=== PATIENT | male | born 1925 | race Caucasian/White ===

== ENCOUNTER 2016-07-07 16:12 | Emergency (ER) | payer MEDICARE, OTHER ==
[~2016-07-07] VITALS: Ht 176.5 cm; Wt 118.2 kg
[~2016-07-07 16:12] MED LIST: ALLO300T2 PO; ALPH600C3 PO; AMLO5TAB2 PO; ASPI-973 PO; ATOR10TA66 PO; DOCU-41 PO; FURO40TA4 PO; GABA-502 PO; GABA600T2 PO; INSU100V7 SUBQ; LISI40TA PO; NEPHVIT PO; PENI500T PO; POTA20TA16 PO; RANI150C4 PO; TAMS0.4C29 PO
[2016-07-07 16:14] VITALS: BP 186/67; PULSE 78; RESP 24; O2SAT 96
--- NOTE | 2016-07-07 16:22 | ED.REPORT ---
HPI-General Illness Date of Service Jul 07, 2016 ED Provider: Dr. Burns 89 y/o male with a hx of CHF, HTN, DM and sleep apnea presents to the ED complaining of SOB and nonproductive cough. Pt reports he started noticing that he was "going to catch a cold 3 weeks ago" He has experienced sneezing, wheezing and cough, which causes ABD pain. He has an appointment with his PCP on Sunday but felt his symptoms had become too severe to wait. Pt denies lower extremity edema. He does not use inhalers at home. He denies any history of bronchitis, COPD or asthma. He has not had any weight gain. He has not had any chest pain. He has not had any calf tenderness, recent surgery, recent immobilization or history of DVTs or pulmonary embolism. Nursing Notes Stated Complaint: SOB Chief Complaint: Respiratory Distress Nursing Notes Reviewed: Yes Allergies: Coded Allergies: No Known Allergies (Verified Allergy, Unknown, 07/07/16) Scheduled Allopurinol (Allopurinol) 300 Mg Tablet 300 MG PO DAILY Alpha Lipoic Acid (Alpha Lipoic Acid) 600 Mg Capsule 600 MG PO DAILY Amlodipine (Amlodipine) 5 Mg Tablet 10 MG PO DAILY Aspirin (Aspirin) 81 Mg Tablet 81 MG PO DAILY Atorvastatin Calcium (Atorvastatin Calcium) 10 Mg Tablet 10 MG PO HS Azithromycin (Zithromax (Z-Clem)) 250 Mg Tablet 250 MG PO DIRECTED Take two tablets by mouth on day 1, then take one tablet daily on days 2 through 5. Furosemide (Furosemide) 40 Mg Tablet 80 MG PO BID Gabapentin (Gabapentin) 300 Mg Capsule 300 MG PO DAILY Gabapentin (Gabapentin) 600 Mg Tablet 600 MG PO QPM Insulin Glargine (Lantus U100 Insulin Vial) 100 Unit/Ml Vial 120 UNIT SUBQ QAM Lisinopril (Lisinopril) 40 Mg Tablet 40 MG PO DAILY Penicillin V Potassium (Penicillin V Potassium) 500 Mg Tablet 500 MG PO BID Potassium Chloride (Potassium Chloride) 20 Meq Tab.er.prt 20 MEQ PO BID TAKE WITH FOOD Ranitidine (Ranitidine) 150 Mg Capsule 150 MG PO BID Tamsulosin ER (Tamsulosin ER) 0.4 Mg Cap.er.24h 0.4 MG PO DAILY Vitamin B Complex/Vit C (Daly-Armida Tablet) 1 Tab Tab 1 TAB PO DAILY Scheduled PRN Benzonatate (Tessalon Perle) 100 Mg Capsule 100 MG PO TID PRN PRN For Cough Docusate Sodium (Colace) 100 Mg Capsule 100 MG PO BID PRN PRN For Constipation General Time Seen by MD: 16:21 Chief Complaint Breathing problem (SOB) Hx Obtained From: Patient Arrived By: Walk-in Sudden in Onset?: Yes Onset Occurred: More than a week ago... Symptom Duration: Since onset Location: : Abdomen Quality: Painful Severity: Current: Mild Severity: Maximum: Mild Recent Healthcare: No recent doctor visit, No recent hospitalization Similar Sx Previous: No Past Medical History Past Medical History Notes: PCP: Dr. Jimmie Petersen Past Medical History 1. Intractable right low back pain/sciatica. 2. Diabetes with peripheral neuropathy, uncontrolled. 3. Hypertension. 4. Hyperlipidemia. 5. Stage 3 chronic kidney disease. 6. 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 7. Morbid obesity. 8. Gout. 9. Hard of hearing. 10. Benign prostatic hyperplasia. 11. Obstructive sleep apnea. 12. History of bradycardia with prior type 2 Wenckebach, improved when beta blockers were discontinued. 13. History of mild thrombocytopenia. 14. Diabetic neuropathy, treated with gabapentin. 15. DO NOT RESUSCITATE/DO NOT INTUBATE status. Reports: Diabetes mellitus, Hypertension Past Surgical History Distant hx of back surgery Reports: Cataract surgery, Cholecystectomy, Prostatectomy Smoking History Never Smoker Social History Alcohol Use: Denies alcohol use Drug Use: Denies drug use Ambulatory Status Cane Review of Systems Full Review of Systems Constitutional: Reports: Malaise Respiratory: Reports: Non-productive cough, Shortness of breath, Wheezing GI: Reports: Abdominal pain (secondary to coughin) Musculoskeletal: Denies: Extremity swelling Allergy / Immune: Reports: Sneezing Complete sys rev & neg: except as marked. Physical Exam Vital Signs Vital Signs Date Time Temp Pulse Resp B/P Pulse Ox O2 Delivery O2 Flow Rate FiO2 07/07/16 18:40 67 20 122/52 92 Room Air 07/07/16 18:12 75 16 96 Room Air 07/07/16 16:14 36.1 78 24 186/67 96 Room Air Initial VS: Reviewed, Vital signs normal Head / Eyes: Atraumatic, Normocephalic, PERRL ENT: Mucous membranes moist, Conjunctiva normal, No scleral icterus Neck: Supple, Full range of motion Abdomen / GI: Soft, Non-tender, No guarding, No rebound, No distention Skin: Warm, Dry, No cyanosis Neurologic: Alert, Oriented, Nonfocal Psychiatric: Mood/affect normal, Behavior normal, Normal thought content General/Constitutional: Awake, Alert, Cooperative Respiratory / Chest: Atraumatic Coarse breath sounds bilaterally. Expiratory wheezing in both lungs. No crackles Cardiovascular: Heart rate NL, Regular rhythm, Heart sounds NL, No gallop, No murmurs, No rubs Good radial pulse. Back: Atraumatic, Full range of motion Upper Extremities Upper Extremity / MS: Atraumatic, Full range of motion Lower Extremity / Pelvis / MS: Atraumatic, Full range of motion Interpretation & Diagnostics Lab Results Interpretation Result Diagram: 07/07/16 1705 07/07/16 1705 Test 07/07/16 17:05 07/07/16 18:40 White Blood Count 9.7th/mm3 (3.8-10.1) Red Blood Count 3.66mil/mm3 (4.40-5.80) Hemoglobin 10.7g/dL (13.8-17.2) Hematocrit 34.5% (41.0-50.0) Mean Corpuscular Volume 94.3fL (81-100) Mean Corpuscular Hemoglobin 29.2pg (27.0-35.0) Mean Corpuscular Hemoglobin Concent 31.0% (32.0-37.0) Red Cell Distribution Width 16.2% (12.3-15.4) Platelet Count 198bil/L (150-400) Neutrophils (%) (Auto) 74.2% (40-74) Lymphocytes (%) (Auto) 11.6% (14-46) Monocytes (%) (Auto) 7.9% (4-12) Eosinophils (%) (Auto) 5.2% (0-5) Basophils (%) (Auto) 0.4% (0-3) Sodium Level 137mEq/L (134-144) Potassium Level 4.5mEq/L (3.5-5.2) Chloride Level 97mEq/L (97-108) Carbon Dioxide Level 23mmol/L (18-29) Blood Urea Nitrogen 45mg/dL (8-27) Creatinine 1.81mg/dL (0.76-1.27) Estimat Glomerular Filtration Rate 38mL/min (>59) Glucose Level 227mg/dL (60-99) Calcium Level 8.8mg/dL (8.5-10.1) Total Bilirubin 0.2mg/dL (0.0-1.2) Aspartate Amino Transf (AST/SGOT) 17U/L (0-50) Alanine Aminotransferase (ALT/SGPT) 17U/L (0-44) Alkaline Phosphatase 139U/L (25-160) Troponin T 0.059ug/L (0.0-0.011) Pro-B-Type Natriuretic Peptide 157.2pg/mL (0-486) Total Protein 8.1g/dL (6.4-8.4) Albumin 3.6g/dL (3.4-5.0) Hold [place] Top Tube Received (Received) ECG Interpretation ECG Interpretation: Sinus rhythm. Rate 66 Normal axis Normal interval No ST segment change T wave inversion in lead AVL No changes compared to prior. Time: 17:07 Interpreted by: ED physician X-Ray Chest Interpretation Chest Xray Interpretation: IMPRESSION: No acute cardiopulmonary disease. Dictated by: Morteza Kc RRA Interpreted: Monica Teran MD on 07/07/2016 at 17:05 Transcribed by: NINI on 07/07/2016 at 17:05 View: Portable, 1 view Interpretation / Wet Read by: Interpret - Radiologist Re-Eval/Medical Decision Med Decision/Clinical Course 89 y/o male with a hx of CHF, HTN, DM and sleep apnea presents to the ED complaining of SOB and nonproductive cough. Pt reports he started noticing that he was "going to catch a cold 3 weeks ago" He has experienced sneezing, wheezing and cough, which causes ABD pain. He has an appointment with his PCP on Sunday but felt his symptoms had become too severe to wait. Pt denies lower extremity edema. He does not use inhalers at home. He denies any history of bronchitis, COPD or asthma. He has not had any weight gain. He has not had any chest pain. He has not had any calf tenderness, recent surgery, recent immobilization or history of DVTs or pulmonary embolism. Here in the emergency department the patient is somewhat tachycardic though otherwise afebrile and hemodynamically stable. He is in no apparent distress. Examination of his lungs reveals coarse breath sounds bilaterally with scattered expiratory wheezing. He was treated with 1 DuoNeb and reported mild symptom improvement. He was ambulated thereafter on pulse oximetry and maintained oxygen saturation in the high 90s on room air. LABS: CBC: no leukocytosis, hct 34.5, BUN 45, creatinine 1.8 (this is not significantly elevated from his baseline kidney function, troponin 0.059 (not significantly elevated from baseline), BNP is not significantly elevated CXR: Obtained, reviewed and interpreted by myself shows no evidence of infiltrates, effusions or pneumothorax. Cardiac and mediastinal silhouette normal. No bony or soft tissue abnormalities. The patient's presentation today is not suggestive of acute pulmonary edema or CHF exacerbation. While he does have underlying congestive heart failure he has not experienced any weight gain and his chest x-ray demonstrates no pulmonary edema. Presentation not suggestive of acute coronary syndrome. Troponin is elevated however EKG demonstrates no acute ischemic changes. Troponin is elevated at baseline and is down from prior. This is somewhat reassuring and I believe that his troponin is elevated in the setting of his chronic kidney disease. Patient is able to ambulate and maintained good oxygen saturation on room air. Presentation most consistent with bronchitis. Duration of symptoms I will treat with Tessalon for cough and a course of azithromycin. My initial plan was to admit this patient for serial troponin however he declines admission and he has an appointment with his primary care doctor on Sunday. He understands the risks of declining admission and I feel that his choice is appropriate. Prior to discharge follow-up and return precautions were reviewed in detail with the patient who verbalized understanding and agreement with the plan. The patient was discharged in stable condition. Source of Hx: Old records Consultation : Consulted With: Hospitalist Candlemaker: Will see patient, Agrees with eval, Agrees with plan, Accepts admit Counseled Regarding: Diagnosis, Lab results, Need for admission Discharge & Departure Primary Impression: Elevated troponin Additional Impressions: Shortness of breath Bronchitis Disposition: ADMITTED TO HOSPITAL Discharge Condition All VS Reviewed: Yes Condition: Stable Referrals: Jimmie Petersen MD (PCP) Scribe Attestation Portions of this note were transcribed by Donna Guerrero . I, personally performed the history, physical exam and medical decision-making;I reviewed and confirmed the accuracy of the information in the transcribed note. Signed by Donna Elias and Isabell Guerrero, Scribmiguel. 07/07/16 1830. copies to: Jimmie Petersen MD, Beck O MD Jul 07, 2016 16:22 Donna Elias Jul 07, 2016 17:17 Isabell Guerrero Jul 07, 2016 17:55
--- NOTE | 2016-07-07 17:06 | DRSVH ---
PROCEDURE: X-RAY CHEST ONE VIEW, PORTABLE ([id number]) INDICATIONS: shortness of breath , cough TECHNIQUE: One view of the chest was acquired. COMPARISON: [facility], CR, XR CHEST 1VW (PORTABLE), 12/31/2015, 9:34. [facility], CR, XR CHEST 1VW (PORTABLE), 05/25/2015, 11:41. [facility], CR, XR CHEST 1VW (POR TABLE), 03/01/2015, 19:13. FINDINGS: Surgical changes and devices: None. Lungs and pleura: No pleural effusions or pneumothorax. Lungs are clear. Mediastinum: Mediastinal contours appear normal. Heart size is enlarged. Bones and chest wall: No suspicious bony lesions. Overlying soft tissues appear unremarkable. IMPRESSION: No acute cardiopulmonary disease. Dictated by: Morteza Kc [facility] Interpreted: Monica Teran MD on 07/07/2016 at 17:05 Transcribed by: NINI on 07/07/2016 at 17:05 Approved by: Monica Teran MD, PhD on 07/08/2016 at 9:24
[2016-07-07 17:14] LABS: BASOPHILS % (AUTO) 0.4 % (0-3); EOSINOPHILS % (AUTO) 5.2 % (0-5); MONOCYTES % (AUTO) 7.9 % (4-12); Mean Corpuscular Hemoglobin 29.2 pg (27.0-35.0); Mean Corpuscular Volume 94.3 fL (81-100); NEUTROPHILS % (AUTO) 74.2 % (40-74); Platelet Count 198 bil/L (150-400)
[2016-07-07] MEDS ORDERED: Albuterol-Ipratropium 3 mL Inhalation Solution NEB ONE (17:45)
[2016-07-07 17:53] LABS: TROPONIN T 0.059 ug/L (0.0-0.011)
[2016-07-07] MEDS ORDERED: Ondansetron 2 mg/mL 2 mL Inj IVPUSH PRN (18:05)
[2016-07-07] MEDS ORDERED: Alum-Mag Hydrox-Simeth 30 mL Suspension PO PRN (18:05)
[2016-07-07 18:12] VITALS: PULSE 75; RESP 16; O2SAT 96
[2016-07-07 18:40] VITALS: BP 122/52; PULSE 67; RESP 20; O2SAT 92
[2016-07-07] MEDS ORDERED: AZIT250T4 PO (18:44)
[2016-07-07] MEDS ORDERED: BENZ-12 PO (18:44)
[2016-07-07 19:24] LABS: APPEARANCE,URINE CLEAR (CLEAR,HAZY); COLOR,URINE YELLOW (YELLOW)
[2016-07-07 19:25] LABS: OCCULT BLOOD,URINE NEGATIVE (NEGATIVE); UROBILINOGEN,URINE NORMAL (NORMAL)
[2016-07-07 19:41] VITALS: BP 135/65; PULSE 69; RESP 20; O2SAT 96
== END 2016-07-07 19:35 | disposition home or self-care (01) ==
LOC: SED 16:12
DX: J40 Bronchitis, not specified as acute or chronic (principal); R77.8 Other specified abnormalities of plasma proteins; I13.0 Hypertensive heart and chronic kidney disease with heart failure and stage 1 through stage 4 chronic kidney disease, or unspecified chronic kidney disease; I50.9 Heart failure, unspecified; E11.22 Type 2 diabetes mellitus with diabetic chronic kidney disease; N18.3 Chronic kidney disease, stage 3 (moderate); E11.40 Type 2 diabetes mellitus with diabetic neuropathy, unspecified; E78.5 Hyperlipidemia, unspecified; Z79.4 Long term (current) use of insulin; Z79.82 Long term (current) use of aspirin
CPT/HCPCS: 36415; 71010; 80053; 81000; 83880; 84484; 85025; 93005; 94664; 99285; J7620

== ENCOUNTER 2016-12-03 03:56 | Inpatient (IN) | payer MEDICARE, OTHER ==
[2016-12-03] VITALS (9 sets, daily range): BP systolic 141–165; BP diastolic 56–77; PULSE 66–76; RESP 16–22; O2SAT 92–97
[~2016-12-03] VITALS: Ht 177.8 cm; Wt 127.3 kg
[~2016-12-03 03:56] MED LIST changes: +AZIT250T4 PO; +BENZ-12 PO
--- NOTE | 2016-12-03 04:06 | ED.REPORT ---
HPI-Trauma Minor / Fall Date of Service Dec 03, 2016 ED Provider: Denis Vargas DO Patient is an 89 year old male with a history of CHF, hypertension and diabetes who presents to the ED via EMS complaining of generalized weakness onset 0300 this morning. He denies increased shortness of breath (and states he is "always short of breath"), any pain or hitting his head when he fell. The patient reports that he went to go to the bathroom and suddenly was on his knees and unable to get up. Upon arrival to the ED, the patient states that he continues to feel weak and has no other complaints. Nursing Notes Stated Complaint: GROUND LEVEL FALL Chief Complaint: Multiple Trauma/Fall Nursing Notes Reviewed: Yes Allergies: Coded Allergies: No Known Allergies (Verified Allergy, Unknown, 12/03/16) Scheduled Allopurinol (Allopurinol) 300 Mg Tablet 300 MG PO DAILY Alpha Lipoic Acid (Alpha Lipoic Acid) 600 Mg Capsule 600 MG PO DAILY Amlodipine (Amlodipine) 10 Mg Tablet 10 MG PO DAILY Aspirin/Caffeine (Anacin 500-32 mg Tablet) 1 Each Tablet 1 TABLET PO DAILY Atorvastatin Calcium (Atorvastatin Calcium) 10 Mg Tablet 10 MG PO MORNING Furosemide (Furosemide) 40 Mg Tablet 120 MG PO BID Gabapentin (Gabapentin) 300 Mg Capsule 300 MG PO MORNING Gabapentin (Gabapentin) 300 Mg Capsule 900 MG PO QPM Insulin Glargine (Lantus U100 Insulin Vial) 100 Unit/Ml Vial 140 UNIT SUBQ MORNING Lisinopril (Lisinopril) 40 Mg Tablet 40 MG PO DAILY Penicillin V Potassium (Penicillin V Potassium) 500 Mg Tablet 500 MG PO BID Potassium Chloride (Potassium Chloride) 20 Meq Tab.er.prt 20 MEQ PO BID TAKE WITH FOOD Tamsulosin ER (Tamsulosin ER) 0.4 Mg Cap.er.24h 0.4 MG PO DAILY Vit B Comp/C/FA/Iron/Vit E (Vitamin B Complex Tablet) 1 Each Tablet 1 TABLET PO DAILY Scheduled PRN Ranitidine (Ranitidine) 150 Mg Capsule 150 MG PO BID PRN PRN For Indigestion General Time Seen by MD: 04:06 Chief Complaint Fall Hx Obtained From: Patient Arrived By: Ambulance Onset Occurred: Just prior to arrival Symptom Duration: Since onset Caused by: Fall on ground Severity: Current: No pain currently Recent Healthcare: Recent doctor visit Past Medical History Past Medical History Notes: PCP: Dr. Jimmie Petersen Past Medical History 1. Intractable right low back pain/sciatica. 2. Diabetes with peripheral neuropathy, uncontrolled. Stage 3 chronic kidney disease. recurrent lower extremity infections with associated sepsis syndrome. Morbid obesity. Gout. Hard of hearing. Benign prostatic hyperplasia. Obstructive sleep apnea. bradycardia with prior type 2 Wenckebach, improved when beta blockers were discontinued. History of mild thrombocytopenia. DO NOT RESUSCITATE/DO NOT INTUBATE status. Reports: Hyperlipidemia, Hypertension Past Surgical History Distant hx of back surgery Reports: Cataract surgery, Cholecystectomy, Prostatectomy Smoking History Never Smoker Social History Alcohol Use: Denies alcohol use Drug Use: Denies drug use Ambulatory Status Cane Review of Systems Constitutional: Reports: Weakness - generalized Respiratory: Denies: Shortness of breath Neurologic: Reports: Problem walking, Denies: Change LOC, Headache Complete sys rev & neg: except as marked. Cardiovascular: Denies: Chest pain GI: Denies: Abdominal pain Physical Exam Initial Vital Signs Vital Signs (First) Date Time Temp Pulse Resp B/P Pulse Ox O2 Delivery O2 Flow Rate FiO2 12/03/16 04:05 37.7 75 17 147/56 92 Nasal Cannula 4 Initial VS: Reviewed General/Constitutional: Awake, Alert Neck: Atraumatic, Supple Head / Eyes: Atraumatic, Normocephalic Respiratory / Chest: Atraumatic Resp Distress / Stridor: Positive: Resp distress mild hypoxic Cardiovascular: Heart rate NL, Regular rhythm, Heart sounds NL Abdomen: Atraumatic, Soft, Non-tender LOWER EXTREMITIES: thickening of the skin and erythema of bilateral lower extremities 1+ pitting edema bilaterally no warmth weeping with serous drainage on sock Skin: No rash, Warm, Dry Neurologic: Oriented X3, Speech NL Interpretation & Diagnostics Lab Results Interpretation Result Diagram: 12/04/16 1100 12/03/16 0407 Test 12/03/16 04:07 12/03/16 05:00 Neutrophils (%) (Auto) 81.9% (40-74) Lymphocytes (%) (Auto) 10.3% (14-46) Monocytes (%) (Auto) 6.2% (4-12) Eosinophils (%) (Auto) 1.2% (0-5) Basophils (%) (Auto) 0.1% (0-3) Hold Purple Top Tube Received (Received) D-Dimer 2.51mg/L FEU (<0.50) Hold Blue Top Tube Received (Received) Sodium Level 139mEq/L (134-144) Potassium Level 5.0mEq/L (3.5-5.2) Chloride Level 100mEq/L (97-108) Carbon Dioxide Level 25mmol/L (18-29) Blood Urea Nitrogen 40mg/dL (8-27) Creatinine 1.85mg/dL (0.76-1.27) Estimat Glomerular Filtration Rate 37mL/min (>59) Glucose Level 126mg/dL (60-99) Calcium Level 8.6mg/dL (8.5-10.1) Magnesium Level 2.1mg/dL (1.6-2.6) Total Bilirubin 0.4mg/dL (0.0-1.2) Aspartate Amino Transf (AST/SGOT) 22U/L (0-50) Alanine Aminotransferase (ALT/SGPT) 26U/L (0-44) Alkaline Phosphatase 151U/L (25-160) Troponin T 0.047ug/L (0.0-0.011) Pro-B-Type Natriuretic Peptide 373.3pg/mL (0-486) Total Protein 7.5g/dL (6.4-8.4) Albumin 3.5g/dL (3.4-5.0) Procalcitonin 0.13ng/mL (0.00-0.08) Hold [place] Top Tube Received (Received) Lactic Acid Level 0.9mmol/L (0.4-2.0) Laboratory Tests 72 Hours Test 12/03/16 04:07 12/03/16 05:00 White Blood Count 14.4th/mm3 (3.8-10.1) Red Blood Count 3.71mil/mm3 (4.40-5.80) Hemoglobin 10.9g/dL (13.8-17.2) Hematocrit 34.3% (41.0-50.0) Mean Corpuscular Volume 92.5fL (81-100) Mean Corpuscular Hemoglobin 29.4pg (27.0-35.0) Mean Corpuscular Hemoglobin Concent 31.8% (32.0-37.0) Red Cell Distribution Width 17.1% (12.3-15.4) Platelet Count 184bil/L (150-400) Neutrophils (%) (Auto) 81.9% (40-74) Lymphocytes (%) (Auto) 10.3% (14-46) Monocytes (%) (Auto) 6.2% (4-12) Eosinophils (%) (Auto) 1.2% (0-5) Basophils (%) (Auto) 0.1% (0-3) Hold Purple Top Tube Received (Received) D-Dimer 2.51mg/L FEU (<0.50) Hold Blue Top Tube Received (Received) Sodium Level 139mEq/L (134-144) Potassium Level 5.0mEq/L (3.5-5.2) Chloride Level 100mEq/L (97-108) Carbon Dioxide Level 25mmol/L (18-29) Blood Urea Nitrogen 40mg/dL (8-27) Creatinine 1.85mg/dL (0.76-1.27) Estimat Glomerular Filtration Rate 37mL/min (>59) Glucose Level 126mg/dL (60-99) Calcium Level 8.6mg/dL (8.5-10.1) Magnesium Level 2.1mg/dL (1.6-2.6) Total Bilirubin 0.4mg/dL (0.0-1.2) Aspartate Amino Transf (AST/SGOT) 22U/L (0-50) Alanine Aminotransferase (ALT/SGPT) 26U/L (0-44) Alkaline Phosphatase 151U/L (25-160) Troponin T 0.047ug/L (0.0-0.011) Pro-B-Type Natriuretic Peptide 373.3pg/mL (0-486) Total Protein 7.5g/dL (6.4-8.4) Albumin 3.5g/dL (3.4-5.0) Procalcitonin 0.13ng/mL (0.00-0.08) Hold [place] Top Tube Received (Received) Lactic Acid Level 0.9mmol/L (0.4-2.0) ECG Interpretation ECG Interpretation: first degree AV block flattening of T wave in lateral lead, unchanged from previous EKG on 07/07/16 Time: 04:11 Interpreted by: ED physician Normal ECG Interpretation: Normal rate (74), Normal sinus rhythm X-Ray Chest Interpretation Chest Xray Interpretation: questionable infiltrate in left lower lobe Interpretation / Wet Read by: Wet read ED physician CT Chest Interpretation IMPRESSION: Suboptimal study for lower lob distal lobar, segmental and subsegmental PE due to motion artifact. Otherwise, no evidence of PE. Partial consolidation of the left lower lobe, infection is favored. Follow up is recommended to demonstrate resolution and exclude post-obstructive etiology. at 0551 Study type: CT pulm angiogram Interpretation / Wet Read by: Interpret - Radiologist Re-Eval/Medical Decision Med Decision/Clinical Course 89-year-old male with a history of diabetes, hypertension, some unknown infection on chronic suppressive antibiotics, presents with acute onset weakness tonight while trying to use the bathroom. He could not arise from the toilet. He did not have any loss of consciousness and did not hit his head. Denies any pain but admits to shortness of breath which she has chronically. He does not use oxygen chronically but is requiring 4 L of oxygen here to maintain his sats. He does not meet any sepsis criteria by vital signs, however he has a white count of 14.4. Chest x-ray showed a questionable left lower lobe pneumonia. As patient was significantly hypoxic and elevated d-dimer , CT PE was performed. This did not reveal PE but did show a left lower lobe pneumonia. Given he takes chronic suppressive antibiotics I started vancomycin and Zosyn after blood cultures. Patient also noted to have renal insufficiency and chronic anemia. His troponin was elevated, but this is likely related to his renal insufficiency and potentially some irritation of the heart with the neighboring left lower lobe pneumonia. Patient will be admitted for further evaluation and treatment. Re-Evaluation/Progress : Time of Eval: 06:05 Re-Evaluation/Progress Note: Discussed results and plan for admit. Patient understands and agrees to plan. All questions were addressed. Consultation : Referral / Consult Name: Nadia Caldwell DO Consulted With: Hospitalist Dinkey Dispatcher: Agrees with eval, Agrees with plan, Accepts admit Counseled Regarding: Diagnosis, Lab results, Need for admission Discharge & Departure Impression: Primary Impression: Pneumonia Pneumonia type: due to unspecified organism Laterality: left Lung location : lower lobe of lung Qualified Code: J18.1 - Lobar pneumonia, unspecified organism Additional Impressions: Elevated troponin Weakness generalized Acute respiratory failure Respiratory failure complication: hypoxia Qualified Code: J96.01 - Acute respiratory failure with hypoxia Hematuria Renal insufficiency Anemia Anemia type: unspecified type Qualified Code: D64.9 - Anemia, unspecified Disposition: ADMITTED TO HOSPITAL Discharge Condition All VS Reviewed: Yes Condition: Stable Referrals: Jimmie Petersen MD (PCP) Frantz Attestation Portions of this note were transcribed by Deedee Mulligan. I, Dr. Person personally performed the history, physical exam and medical decision-making; I reviewed and confirmed the accuracy of the information in the transcribed note. Signed by: Frantz Sommers, 12/02/16 copies to: Jimmie Petersen MD, Gary R DO Dec 03, 2016 04:06 Heidi Mulligan Dec 03, 2016 04:22
[2016-12-03 04:31] LABS: BASOPHILS % (AUTO) 0.1 % (0-3); EOSINOPHILS % (AUTO) 1.2 % (0-5); MONOCYTES % (AUTO) 6.2 % (4-12); Mean Corpuscular Hemoglobin 29.4 pg (27.0-35.0); Mean Corpuscular Volume 92.5 fL (81-100); NEUTROPHILS % (AUTO) 81.9 % (40-74); Platelet Count 184 bil/L (150-400)
[2016-12-03 05:04] LABS: Magnesium 2.1 mg/dL (1.6-2.6)
[2016-12-03 05:06] LABS: TROPONIN T 0.047 ug/L (0.0-0.011)
[2016-12-03] MEDS ORDERED: Piperacillin-Tazo 3.375 Gm Inj 3.375 GM in Dextrose 5% Minibag Plus 50 ML IV ONE (06:00)
[2016-12-03] MEDS ORDERED: Vancomycin Inj 1,250 MG in 0.9% Sodium Chloride 250 ML IV ONE (06:10)
[2016-12-03] MEDS ORDERED: Ondansetron 2 mg/mL 2 mL Inj IVPUSH PRN ×2 (06:25→10:25)
[2016-12-03] MEDS ORDERED: Alum-Mag Hydrox-Simeth 30 mL Suspension PO PRN ×2 (06:25→10:25)
--- NOTE | 2016-12-03 07:31 | NUR ---
admit 0730 pt admitted from the ED. pt transferred to [facility] bed with transfer board and two CNAs. pt denies pain or SOB. pt's legs are bright red and skin is flaking off. pt requests a urinal, voids straw colored urine with blood sediment(attempted a straight cath in the ED). pt is initially refuses a hospital gown but then changes mind.
--- NOTE | 2016-12-03 07:40 | DRSVH ---
PROCEDURE: X-RAY CHEST ONE VIEW, PORTABLE ([id number]) INDICATIONS: sob, weak TECHNIQUE: One view of the chest was acquired. COMPARISON: [facility], CT, CT ANGIO CHEST PE, 12/03/2016, 5:33. [facility], CR, XR CHEST 1VW (PORTABLE), 07/07/2016, 16:39. FINDINGS: Surgical changes and devices: None. Lungs and pleura: No pleural effusions or pneumothorax. Lung volumes are low. Mild patchy bilateral basilar airspace opacities are present in the left greater than right. Mediastinum: Mediastinal contours appear normal. Heart size is normal. Bones and chest wall: No suspicious bony lesions. Overlying soft tissues appear unremarkable. IMPRESSION: Mild bibasilar atelectasis versus pneumonia. Dictated by: Modesto Patel M.D. on 12/03/2016 at 7:36 Approved by: Modesto Patel M.D. on 12/03/2016 at 7:38
--- NOTE | 2016-12-03 08:27 | DRSVH ---
PROCEDURE: CT ANGIO CHEST PULMONARY EMBOLISM ([id number]) INDICATIONS: SOB, hypoxia TECHNIQUE: After the administration of intravenous contrast, 2 mm thick sections acquired from the pulmonary api em to the posterior costophrenic angles. 3-dimensional maximum intensity projection (MIP) coronal a nd sagittal reformats were then acquired through the thorax. For radiation dose reduction, the follo wing was used: automated exposure control, adjustment of mA and/or kV according to patient size. COMPARISON: None. FINDINGS: Image quality: Excellent. Pulmonary arteries: Pulmonary arteries are normal in size, and demonstrate no intraluminal filling d efects to suggest central pulmonary embolism. Lungs and pleura: Moderate air space opacity within the left lower lobe posteriorly. Mild right lower lobe airspace opacity. No pleural effusions or pneumothorax. Central and peripheral airways are pat ent. Mediastinum: Heart size is enlarged, without pericardial effusion. There is calcification of the cor onary vasculature. 15 mm short axis right paratracheal lymphadenopathy. 9 mm short axis right subcari nal lymph node enlargement. Thoracic aorta is normal in caliber and enhancement. Esophagus is normal in caliber, without hiatal hernia. Bones and chest wall: No suspicious bony lesions. Ribs and thoracic spine appear intact throughout. Thyroid gland demonstrates an exophytic 20 mm nodule protruding inferiorly from the left lobe, as b efore.. No axillary or supraclavicular adenopathy. Abdomen: Visualized upper abdominal solid organs appear normal in the early arterial phase of enhanc ement. IMPRESSION: 1. No pulmonary embolus. 2. Left greater than right basilar pneumonia. 3. Presumably reactive mediastinal lymph node enlargement. Followup chest CT with contrast in 3 month s is recommended to ensure resolution and exclude underlying malignancy. 4. Concordant with preliminary interpretation. Dictated by: Modesto Patel M.D. on 12/03/2016 at 8:23 Approved by: Modesto Patel M.D. on 12/03/2016 at 8:26
[2016-12-03] MEDS ORDERED: Vancomycin Dose per Pharmacist XX SCH (08:30)
[2016-12-03 08:54] LABS: APPEARANCE,URINE CLEAR (CLEAR,HAZY); COLOR,URINE YELLOW (YELLOW); OCCULT BLOOD,URINE LARGE (NEGATIVE); UROBILINOGEN,URINE NORMAL (NORMAL)
[2016-12-03] MEDS ORDERED: HYDROcodone-APAP 5-325 mg Tablet PO PRN (10:25)
[2016-12-03] MEDS ORDERED: Glucose 40% Oral Gel 15 Gm Tube PO PRN (10:45)
--- NOTE | 2016-12-03 10:53 | PCM.HPMED ---
Subjective Date of Service Dec 03, 2016 Primary Provider: Admitting Physician: Nadia Caldwell DO Primary Care Physician: Jimmie Petersen MD Attending Physician: Nadia Caldwell DO Chief Complaint: Weakness History of Present Illness: He has been feeling weak. This morning around 3 AM he says he got up to go to the bathroom and went "down". According to the ED physician and he was down on his knees and not able to get back up. He lives at [facility] and pushed the button for assistance and they called the ambulance. He denies fever chills or sweats he's not had a cough for recent URI. Since said he saw him yesterday morning and he looked fine. Review of Systems: Unremarkable except as above. He says his home blood sugars been running in the range of 75-150 Allergies Coded Allergies: No Known Allergies (Verified Allergy, Unknown, 12/03/16) Home Medications Patient is not able to list his medications. Son did bring and the sac of pill bottles. See medication reconciliation. The patient manages his own medications. Each week he points out a weeks supply into weekly container. PMH 1. DDD/chronic low back pain/sciatica. 2. Diabetes mellitus with peripheral neuropathy, uncontrolled, insulin dependent. 3. Hypertension 4. Hyperlipidemia. 5. Stage 3- 4 chronic kidney disease. 6. Chronic lymphedema of lower extremities with recurrent infections with associated sepsis syndrome.most recent admission/inpatient stay in 2014 7. Morbid obesity/DARREN with OBHVS. 8. Gout. 9. Hard of hearing. 10. Benign prostatic hyperplasia. 11. CHF, chronic, diastolic with pulmonary HTN. 12. History of bradycardia with prior type 2 Wenckebach, improved when beta blockers were discontinued. 13. MRSA (methicillin resistant Staphylococcus aureus) carrier Surgical History 1. Cataract surgery. 2. Open cholecystectomy for gangrenous cholecystitis. 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 His son Sukhjinder is with him today Exam Vital Signs Vital Sign - Last Date Time Temp Pulse Resp B/P Pulse Ox O2 Delivery O2 Flow Rate FiO2 12/03/16 08:56 70 12/03/16 08:50 Supplement Oxygen 12/03/16 07:46 36.5 20 149/74 95 4.00 Exam General: Alert and oriented, no acute distress HEENT: Unremarkable Neck: Thick, no apparent JVD, carotids 1-2+ Heart: Regular Lungs: Clear anteriorly and laterally Abdomen: Soft, non-tender, bowel tones present, obese but no apparent mass or hepatosplenomegaly Extremities: 1-2+ pedal edema, or extremities chronic stasis changes with erythema, thickened skin and scaling extending two thirds up to the knees bilaterally. His son states that legs actually appear better than their usual. Neuro: Hand transmissions systems operator are strong and equal, lifts both legs well off the bed against resistance Lab and Diagnostics Result Diagram: 12/03/1640612/03/16406 X-Rays, CTs and MRIs PROCEDURE: X-RAY CHEST ONE VIEW, PORTABLE ([id number]) INDICATIONS: sob, weak TECHNIQUE: One view of the chest was acquired. COMPARISON: [facility], CT, CT ANGIO CHEST PE, 12/03/2016, 5:33. [facility], CR, XR CHEST 1VW (PORTABLE), 07/07/2016, 16:39. FINDINGS: Surgical changes and devices: None. Lungs and pleura: No pleural effusions or pneumothorax. Lung volumes are low. Mild patchy bilateral basilar airspace opacities are present in the left greater than right. Mediastinum: Mediastinal contours appear normal. Heart size is normal. Bones and chest wall: No suspicious bony lesions. Overlying soft tissues appear unremarkable. IMPRESSION: Mild bibasilar atelectasis versus pneumonia. Dictated by: Modesto Patel M.D. on 12/03/2016 at 7:36 Approved by: Modesto Patel M.D. on 12/03/2016 at 7:38 PROCEDURE: CT ANGIO CHEST PULMONARY EMBOLISM ([id number]) INDICATIONS: SOB, hypoxia TECHNIQUE: After the administration of intravenous contrast, 2 mm thick sections acquired from the pulmonary apices to the posterior costophrenic angles. 3-dimensional maximum intensity projection (MIP) coronal and sagittal reformats were then acquired through the thorax. For radiation dose reduction, the following was used: automated exposure control, adjustment of mA and/or kV according to patient size. COMPARISON: None. FINDINGS: Image quality: Excellent. Pulmonary arteries: Pulmonary arteries are normal in size, and demonstrate no intraluminal filling defects to suggest central pulmonary embolism. Lungs and pleura: Moderate air space opacity within the left lower lobe posteriorly. Mild right lower lobe airspace opacity. No pleural effusions or pneumothorax. Central and peripheral airways are patent. Mediastinum: Heart size is enlarged, without pericardial effusion. There is calcification of the coronary vasculature. 15 mm short axis right paratracheal lymphadenopathy. 9 mm short axis right subcarinal lymph node enlargement. Thoracic aorta is normal in caliber and enhancement. Esophagus is normal in caliber, without hiatal hernia. Bones and chest wall: No suspicious bony lesions. Ribs and thoracic spine appear intact throughout. Thyroid gland demonstrates an exophytic 20 mm nodule protruding inferiorly from the left lobe, as before.. No axillary or supraclavicular adenopathy. Abdomen: Visualized upper abdominal solid organs appear normal in the early arterial phase of enhancement. IMPRESSION: 1. No pulmonary embolus. 2. Left greater than right basilar pneumonia. 3. Presumably reactive mediastinal lymph node enlargement. Followup chest CT with contrast in 3 months is recommended to ensure resolution and exclude underlying malignancy. 4. Concordant with preliminary interpretation. Dictated by: Modesto Patel M.D. on 12/03/2016 at 8:23 Approved by: Modesto Patel M.D. on 12/03/2016 at 8:26 Assessment & Plan # Left lower lobe pneumonia, more clearly seen on CT - Received vancomycin and Zosyn in the emergency department. 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) Will change his antibiotics to IV Levaquin - 2 blood cultures were obtained in the emergency department - Oxygen as needed although there is a room air O2 saturation of 94% recorded - He will need follow-up imaging to document resolution # claim technician reports 5.7 second pauses on telemetry which is felt to be weinchebach - obtain EKG - continue to monitor - not currently on any medication likely to cause # Diabetes mellitus, type II but on insulin therapy - Continue his usual long-acting insulin as well as a high-dose lispro sliding scale # Hematuria, not noted on urinalysis in June 2016 - Follow up as an outpatient # Chronic anemia, hemoglobin essentially unchanged when compared to June so appears stable # Chronic kidney disease, stable, creatinine 1.85 today and was 1.81 in June # Chronic mild elevation of troponin probably related to kidney disease, was 0.59 in June and 0.47 today Mari Barth MD Dec 03, 2016 10:53
[2016-12-03] MEDS ORDERED: GABA-502 PO (10:58)
[2016-12-03] MEDS ORDERED: ASPI-1022 PO (10:58)
[2016-12-03] MEDS ORDERED: AMLO10TA3 PO (10:58)
[2016-12-03] MEDS ORDERED: VIT1TABL83 PO (11:03)
[2016-12-03] MEDS: Insulin LISPRO 300 Unit/3 mL Inj SUBQ SCH ×3 (11:32→22:00)
[2016-12-03] MEDS: Lisinopril 40 Tablet PO SCH (12:14)
--- NOTE | 2016-12-03 12:41 | NUR ---
tongue ache pt reports that his tongue aches. No visible wound and doesn't appear to be yeasty. This RN will continue to monitor pt's discomfort.
[2016-12-03] MEDS ORDERED: levoFLOXacin Inj 750 MG in IV Premix 1 EACH IV SCH (14:00)
--- NOTE | 2016-12-03 14:13 | NUR ---
Evaluation completed. Please go to "Notes" then click on "Assessments and Notes" (bottom left corner of screen). Then select appropriate discipline tab on top of screen.
--- NOTE | 2016-12-03 17:07 | NUR ---
Social Work: Initial Assessment / Multidisciplinary Rounds Data: See initial assessment. Patient is an 89 year old male who was admitted on 12/03/16 for pneumonia per H&P. Patient's insurance is Medicare and [facility]. Patient's PCP is Jimmie Petersen MD. EMR reviewed. SW met with patient and son Sukhjinder to discuss discharge planning. SW role explained. Patient resides in independent living at [facility] and has been for the past 2 years. Patient uses a FWW at baseline and is able to perform his ALDs and care needs. Sukhjinder states that DPOA paperwork and AD have been completed and should be on file with the hospital. Patient does not drive. Patient has no hx of home health services but has been to [facility] in the past for rehab. Patient does not have any termite treater care insurance or VA benefits. PT has completed evaluation of patient and recommendation has been made for patient to return to [facility]. SW provided patient with a discharge planning checklist booklet and encouraged to call with any questions or concerns. Phone number provided. Patient was discussed in morning rounds. No concerns were noted by staff or MD. SW will continue to follow for needs. Assessment: Patient resides at [facility]. Plan: Patient will likely return to [facility] when medically stable for discharge. Transportation will be provided by family. SW will continue to follow for needs. BARNEY Ortega Addendum: 12/03/16 at 1732 by LAY SAUCEDA SS Amended: Links added.
--- NOTE | 2016-12-03 18:11 | NUR ---
left leg pain pt states that his left leg near his groin area is hurting. pt states that it started to hurt after the last time he got up to urinate. 1mg morphine given, will continue to monitor.
[2016-12-03] MEDS: Potassium Chloride 20 mEq SR Tablet PO SCH (20:35)
[2016-12-04] VITALS (8 sets, daily range): BP systolic 118–159; BP diastolic 62–76; PULSE 64–73; RESP 17–22; O2SAT 93–97
--- NOTE | 2016-12-04 05:17 | NUR ---
NOC Activity Pt is alert and oriented. Denies chest pain. Reports of SOB with activity and with rest. Has been cooperative with care. Telemetry monitoring noted SR 67 with AV Block. Encouraging pt to cough and deep breath. HS meds administered as ordered. Intentional hourly rounding ongoing.
[2016-12-04] MEDS ORDERED: ASPIRIN PO SCH (08:30)
[2016-12-04] MEDS ORDERED: ALPHA LIPOIC ACID 600 MG PO SCH (08:30)
[2016-12-04] MEDS ORDERED: CAFFEINE PO SCH (08:30)
[2016-12-04] MEDS: Insulin GLARgine 100 Unit/mL Syringe SUBQ SCH (08:58)
[2016-12-04] MEDS: Insulin LISPRO 300 Unit/3 mL Inj SUBQ SCH ×4 (08:59→21:44)
[2016-12-04] MEDS: Lisinopril 40 Tablet PO SCH (09:00)
[2016-12-04] MEDS: Potassium Chloride 20 mEq SR Tablet PO SCH ×2 (09:01→21:18)
[2016-12-04] MEDS: Multivit-Miner-Folic Acid-Iron Tablet PO SCH (09:01)
--- NOTE | 2016-12-04 10:44 | PCM.PNMED ---
Subjective Date of Service Dec 04, 2016 Subjective Weakness perhaps slightly improved but overall still quite weak and says he could not manage at home Exam Vital Signs Vital Sign - Last Date Time Temp Pulse Resp B/P Pulse Ox O2 Delivery O2 Flow Rate FiO2 12/04/16 10:17 67 12/04/16 04:44 36.5 20 144/62 93 Nasal Cannula 3.00 Intake and Output 12/03/16 12/03/16 12/04/16 Cumulative From/Thru 15:00 23:00 07:00 12/03/16 04:05 - 12/04/16 05:23 Intake Total 273 ml 2329 ml 2602 ml Output Total 1000 ml 1000 ml Balance 273 ml 1329 ml 1602 ml Intake Oral 1900 ml 1900 ml IV Total 273 ml 429 ml 702 ml Output Urine Total 1000 ml 1000 ml # Bowel Movements 1 1 Exam General: Alert and oriented, no acute distress Heart: Regular Tele: SR in 60s, no pauses since admitted Lungs: bibasilar insp crackles and decreased BS left base Abdomen: Soft, non-tender Extremities: andchronic lower leg stasis changes with mild pedal edema bilaterally IVs and Medications Medications Reviewed: Medications were reviewed in detail Lab and Diagnostics Result Diagram: 12/03/1640612/03/16406 X-Rays, CTs and MRIs PROCEDURE: X-RAY CHEST ONE VIEW, PORTABLE ([id number]) INDICATIONS: sob, weak TECHNIQUE: One view of the chest was acquired. COMPARISON: [facility], CT, CT ANGIO CHEST PE, 12/03/2016, 5:33. [facility], CR, XR CHEST 1VW (PORTABLE), 07/07/2016, 16:39. FINDINGS: Surgical changes and devices: None. Lungs and pleura: No pleural effusions or pneumothorax. Lung volumes are low. Mild patchy bilateral basilar airspace opacities are present in the left greater than right. Mediastinum: Mediastinal contours appear normal. Heart size is normal. Bones and chest wall: No suspicious bony lesions. Overlying soft tissues appear unremarkable. IMPRESSION: Mild bibasilar atelectasis versus pneumonia. Dictated by: Modesto Patel M.D. on 12/03/2016 at 7:36 Approved by: Modesto Patel M.D. on 12/03/2016 at 7:38 PROCEDURE: CT ANGIO CHEST PULMONARY EMBOLISM ([id number]) INDICATIONS: SOB, hypoxia TECHNIQUE: After the administration of intravenous contrast, 2 mm thick sections acquired from the pulmonary apices to the posterior costophrenic angles. 3-dimensional maximum intensity projection (MIP) coronal and sagittal reformats were then acquired through the thorax. For radiation dose reduction, the following was used: automated exposure control, adjustment of mA and/or kV according to patient size. COMPARISON: None. FINDINGS: Image quality: Excellent. Pulmonary arteries: Pulmonary arteries are normal in size, and demonstrate no intraluminal filling defects to suggest central pulmonary embolism. Lungs and pleura: Moderate air space opacity within the left lower lobe posteriorly. Mild right lower lobe airspace opacity. No pleural effusions or pneumothorax. Central and peripheral airways are patent. Mediastinum: Heart size is enlarged, without pericardial effusion. There is calcification of the coronary vasculature. 15 mm short axis right paratracheal lymphadenopathy. 9 mm short axis right subcarinal lymph node enlargement. Thoracic aorta is normal in caliber and enhancement. Esophagus is normal in caliber, without hiatal hernia. Bones and chest wall: No suspicious bony lesions. Ribs and thoracic spine appear intact throughout. Thyroid gland demonstrates an exophytic 20 mm nodule protruding inferiorly from the left lobe, as before.. No axillary or supraclavicular adenopathy. Abdomen: Visualized upper abdominal solid organs appear normal in the early arterial phase of enhancement. IMPRESSION: 1. No pulmonary embolus. 2. Left greater than right basilar pneumonia. 3. Presumably reactive mediastinal lymph node enlargement. Followup chest CT with contrast in 3 months is recommended to ensure resolution and exclude underlying malignancy. 4. Concordant with preliminary interpretation. Dictated by: Modesto Patel M.D. on 12/03/2016 at 8:23 Approved by: Modesto Patel M.D. on 12/03/2016 at 8:26 Assessment & Plan # Left lower lobe pneumonia, more clearly seen on CT - Received vancomycin and Zosyn in the emergency department. 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) Will change his antibiotics to IV Levaquin - 2 blood cultures were obtained in the emergency department and are NGSF - Oxygen - currently sat 92-94% on 3 liters (not on home O2) - He will need follow-up imaging to document resolution # 5.7 second pauses on telemetry which were felt to be weinchebach was reported to me, apparently from ED as television newscast director says there have been no pauses since admission - EKG - 1st degree AVB - continue to monitor - not currently on any medication likely to cause # Diabetes mellitus, type II but on insulin therapy - Continue his usual long-acting insulin as well as a high-dose lispro sliding scale - glucoses mostly 100s but 290 last noe # Hematuria, not noted on urinalysis in June 2016 - Follow up as an outpatient # Chronic anemia, hemoglobin essentially unchanged when compared to June so appears stable # Chronic kidney disease, stable, creatinine 1.85 today and was 1.81 in June # Chronic mild elevation of troponin probably related to kidney disease, was 0.59 in June and 0.47 today Mari Barth MD Dec 04, 2016 10:44
[2016-12-04 11:23] LABS: Mean Corpuscular Hemoglobin 28.8 pg (27.0-35.0); Mean Corpuscular Volume 94.4 fL (81-100)
--- NOTE | 2016-12-04 16:00 | NUR ---
Shift: Pt denies any pain, VSS, tele SR with 1st degree AVB, O2 sats 96% on 3L NC. Voiding per urinal, tolerating PO intake, blood sugars remain elevated. Sleeps in recliner, up to bathroom with 1p assist and FWW. Pt worked with PT today, see notes for details. Anticipate discharge in 1-2 days, pt reports that he will be returning to [facility]. Family at bedside, updated on plan of care, care ongoing.
--- NOTE | 2016-12-04 16:05 | NUR ---
Social Work-readiness for discharge/multidisciplinary rounds: Data:EMR reviewed. Pt is on day 1 of hospitalization for pneumonia per H&P. Pt is not medically stable anticipate 1-2 more days. PT has seen pt and recommending assisted living and HH services. orders received. SW followed up with pt at bedside, SW role explained. Pt informed SW that he has been living in independent living, but is interested in moving over to assisted living for a little bit of time. SW discussed HH and pt is declining at this time. Pt is agreeable to SW calling [facility] to inquire. SW spoke with Esme who states she can come over tomorrow around 1000 and see pt and complete assessment for assisted living. SW will continue to follow. Assessment:Pt who would benefit from SENIOR LIVING. Plan:Pt to likely discharge back to [facility] when medically stable. [facility] to come over tomorrow and complete assessment for moving pt to assisted living. SW will continue to follow. BARNEY Bruce
[2016-12-05] VITALS (7 sets, daily range): BP systolic 155–168; BP diastolic 6–73; PULSE 65–76; RESP 17–18; O2SAT 94–98
--- NOTE | 2016-12-05 02:26 | NUR ---
NOC Activity Pt has been pleasant and cooperative with care. Denies chest pain. Pt reports of sob with activity but states that he's always sob. No nausea and vomiting or abd discomfort throughout the night. VSS and has been afebrile. Continuing to monitor. Addendum: 12/05/16 at 0431 by DELIA PHILLIPS RN noted pt getting weak on feet while trying to get up and use the urinal this morning. Pt saturation drops to 85% while standing up. SOB with exertion and expiratory wheezes.
[2016-12-05 06:19] LABS: BASOPHILS % (AUTO) 0.1 % (0-3); EOSINOPHILS % (AUTO) 3.7 % (0-5); MONOCYTES % (AUTO) 8.1 % (4-12); Mean Corpuscular Hemoglobin 29.2 pg (27.0-35.0); Mean Corpuscular Volume 93.9 fL (81-100); NEUTROPHILS % (AUTO) 75.8 % (40-74); Platelet Count 173 bil/L (150-400)
[2016-12-05] MEDS: Heparin 5,000 Unit/mL Inj SUBQ SCH ×2 (08:36→17:28)
[2016-12-05] MEDS: Potassium Chloride 20 mEq SR Tablet PO SCH ×2 (08:37→21:35)
[2016-12-05] MEDS: levoFLOXacin 500 mg Tablet PO SCH (08:37)
[2016-12-05] MEDS: Lisinopril 40 Tablet PO SCH (08:37)
[2016-12-05] MEDS: Insulin GLARgine 100 Unit/mL Syringe SUBQ SCH (08:38)
[2016-12-05] MEDS: Insulin LISPRO 300 Unit/3 mL Inj SUBQ SCH ×4 (08:38→21:40)
[2016-12-05] MEDS: Multivit-Miner-Folic Acid-Iron Tablet PO SCH (08:39)
--- NOTE | 2016-12-05 09:30 | PCM.PNMED ---
Subjective Date of Service Dec 05, 2016 Subjective Complains of feeling quite weak, but he was improved yesterday but now feels worse today. Not any unilateral weakness. He does get hypoxic with activity even standing up at the bedside. Exam Vital Signs Vital Sign - Last Date Time Temp Pulse Resp B/P Pulse Ox O2 Delivery O2 Flow Rate FiO2 12/05/16 09:12 37.2 71 18 163/69 94 Nasal Cannula 5.00 Intake and Output 12/04/16 12/04/16 12/05/16 Cumulative From/Thru 15:00 23:00 07:00 12/03/16 04:05 - 12/05/16 06:16 Intake Total 100 ml 1990 ml 200 ml 4892 ml Output Total 600 ml 600 ml 420 ml 2620 ml Balance -500 ml 1390 ml -220 ml 2272 ml Intake Oral 100 ml 1990 ml 200 ml 4190 ml IV Total 702 ml Output Urine Total 600 ml 600 ml 420 ml 2620 ml # Bowel Movements 0 0 1 Exam General: Alert and oriented, no acute distress Heart: Regular Lungs: Clear except some bibasilar inspiratory crackles which have improved since yesterday Abdomen: Soft, non-tender Extremities: Mild pedal edema and bilateral lower extremity chronic stasis changes 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, can lift both legs equally against resistance although somewhat weak Decreased light touch sensation below the knees, jeb the feet Rechecked at 1730: He says legs don't feel as weak as they did this morning Against resistance can extend leg at knee 4-5/5 bilaterally Dorsi- and Plantar flexion against resistance 4/5 and symmetrical IVs and Medications Medications Reviewed: Medications were reviewed in detail Lab and Diagnostics Result Diagram: 12/05/16 0530 12/03/16 0407 X-Rays, CTs and MRIs PROCEDURE: X-RAY CHEST ONE VIEW, PORTABLE ([id number]) INDICATIONS: sob, weak TECHNIQUE: One view of the chest was acquired. COMPARISON: [facility], CT, CT ANGIO CHEST PE, 12/03/2016, 5:33. [facility], CR, XR CHEST 1VW (PORTABLE), 07/07/2016, 16:39. FINDINGS: Surgical changes and devices: None. Lungs and pleura: No pleural effusions or pneumothorax. Lung volumes are low. Mild patchy bilateral basilar airspace opacities are present in the left greater than right. Mediastinum: Mediastinal contours appear normal. Heart size is normal. Bones and chest wall: No suspicious bony lesions. Overlying soft tissues appear unremarkable. IMPRESSION: Mild bibasilar atelectasis versus pneumonia. Dictated by: Modesto Patel M.D. on 12/03/2016 at 7:36 Approved by: Modesto Patel M.D. on 12/03/2016 at 7:38 PROCEDURE: CT ANGIO CHEST PULMONARY EMBOLISM ([id number]) INDICATIONS: SOB, hypoxia TECHNIQUE: After the administration of intravenous contrast, 2 mm thick sections acquired from the pulmonary apices to the posterior costophrenic angles. 3-dimensional maximum intensity projection (MIP) coronal and sagittal reformats were then acquired through the thorax. For radiation dose reduction, the following was used: automated exposure control, adjustment of mA and/or kV according to patient size. COMPARISON: None. FINDINGS: Image quality: Excellent. Pulmonary arteries: Pulmonary arteries are normal in size, and demonstrate no intraluminal filling defects to suggest central pulmonary embolism. Lungs and pleura: Moderate air space opacity within the left lower lobe posteriorly. Mild right lower lobe airspace opacity. No pleural effusions or pneumothorax. Central and peripheral airways are patent. Mediastinum: Heart size is enlarged, without pericardial effusion. There is calcification of the coronary vasculature. 15 mm short axis right paratracheal lymphadenopathy. 9 mm short axis right subcarinal lymph node enlargement. Thoracic aorta is normal in caliber and enhancement. Esophagus is normal in caliber, without hiatal hernia. Bones and chest wall: No suspicious bony lesions. Ribs and thoracic spine appear intact throughout. Thyroid gland demonstrates an exophytic 20 mm nodule protruding inferiorly from the left lobe, as before.. No axillary or supraclavicular adenopathy. Abdomen: Visualized upper abdominal solid organs appear normal in the early arterial phase of enhancement. IMPRESSION: 1. No pulmonary embolus. 2. Left greater than right basilar pneumonia. 3. Presumably reactive mediastinal lymph node enlargement. Followup chest CT with contrast in 3 months is recommended to ensure resolution and exclude underlying malignancy. 4. Concordant with preliminary interpretation. Dictated by: Modesto Patel M.D. on 12/03/2016 at 8:23 Approved by: Modesto Patel M.D. on 12/03/2016 at 8:26 Assessment & Plan # Left lower lobe pneumonia, more clearly seen on CT - Received vancomycin and Zosyn in the emergency department. 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) Will change his antibiotics to IV Levaquin (then to po 12/04) - 2 blood cultures were obtained in the emergency department and are NGSF - Oxygen - currently sat 95-98% on 3 liters (not on home O2) but desat to 80's this am with standing at bedside - He will need follow-up imaging to document resolution - Still weak and hypoxic, will do 2 v CXR to r/o complications - Nasal swab positive for MRSA # 5.7 second pauses on telemetry which were felt to be weinchebach was reported to me, apparently from ED as telecommunications consultant says there have been no pauses since admission - EKG - 1st degree AVB - continue to monitor - not currently on any medication likely to cause # Diabetes mellitus, type II but on insulin therapy - Continue his usual long-acting insulin as well as a high-dose lispro sliding scale - glucoses mostly low-mid 200s, will add nutritional dose of 5 units prior to meals # Hematuria, not noted on urinalysis in June 2016 - Follow up as an outpatient # Chronic anemia, hemoglobin essentially unchanged when compared to June so appears stable # Chronic kidney disease, stable, creatinine 1.85 today and was 1.81 in June # Chronic mild elevation of troponin probably related to kidney disease, was 0.59 in June and 0.47 today Mari Barth MD Dec 05, 2016 09:29
--- NOTE | 2016-12-05 09:34 | NUR ---
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
[2016-12-05] MEDS ORDERED: Glucose 40% Oral Gel 15 Gm Tube PO PRN (10:20)
--- NOTE | 2016-12-05 11:28 | DRSVH ---
PROCEDURE: X-RAY CHEST ONE VIEW, PORTABLE ([id number]) INDICATIONS: pneumonia TECHNIQUE: One view of the chest was acquired. COMPARISON: [facility], CT, CT ANGIO CHEST PE, 12/03/2016, 5:33. [facility], CR, XR CHEST 1VW (PORTABLE), 12/31/2015, 9:34. [facility], CR, XR CHEST 1VW (PORTABLE), 07/07/2016, 16:39. [facility], CR, XR CHEST 1VW (PORTABLE), 12/03/2016, 5:13. FINDINGS: Surgical changes and devices: Cholecystectomy clips are seen. Lungs and pleura: Low lung volumes are noted. This causes a crowded appearance to the lung markings and limits evaluation. Mild, streaky opacities are seen at the lung bases, left worse than right. Mediastinum: The cardiac contours are within normal limits. The aorta demonstrates calcification and tortuosity. Bones and chest wall: No suspicious bony lesions. Overlying soft tissues appear unremarkable. IMPRESSION: Limited study demonstrating mild infiltrates at the lung bases. The infiltrates are bett er seen on the CT examination. Dictated by: Virgil Braden M.D. on 12/05/2016 at 11:24 Approved by: Virgil Braden M.D. on 12/05/2016 at 11:26
[2016-12-05] MEDS: Polyethylene Glycol (PEG) 17 Gm Powder PO PRN (12:11)
--- NOTE | 2016-12-05 14:36 | NUR ---
Social Work-readiness for discharge/ multidisciplinary rounds: Data:EMR reviewed. Pt is on day 2 of hospitalization for pneumonia per H&P. Pt is not medically stable anticipate 1-2 more days. [facility] came to see pt today and they feel like pt is very weak right now and may need a higher level of care. PT saw pt today and they are recommending SNF. MD order received. SW spoke with pt at bedside, SW role explained. SW explained recommendation of SNF. Pt states he would like SW to speak with his sons and if they think this is needed he is agreeable to this. SW spoke with son Sukhjinder [phone] who confirms that SNF would be needed, choice list provided. Darryn Slaughter would like a referral to [facility] because pt has been there before. Sukhjinder states he will update pt's son Cesar [phone]. SW made referral to [facility] and provided access in [email or web address]. Paperwork and PASRR in the chart. SW will continue to follow. Assessment:pt who would benefit from SNF. Plan:Referral made to [facility]. Paperwork and PASRR in the chart. SW will continue to follow. BARNEY Bruce
--- NOTE | 2016-12-05 14:40 | NUR ---
SNF choice list provided. BARNEY Bruce
--- NOTE | 2016-12-05 15:12 | NUR ---
[facility] can accept with Dr. Giordano to follow. BARNEY Bruce
[2016-12-06] MEDS: Polyethylene Glycol (PEG) 17 Gm Powder PO PRN (00:21)
[2016-12-06] MEDS: Heparin 5,000 Unit/mL Inj SUBQ SCH ×2 (00:22→08:21)
[2016-12-06 00:26] VITALS: PULSE 66
--- NOTE | 2016-12-06 04:06 | NUR ---
NOC/Generalized Weakness Pt has been having weakness on lower extremities. Slow in getting up and has been having sob at rest and with exertion. Currently on 3LPM NC and has been saturating high 90's. Senna tab and miralax administered for constipation. Continuing to monitor.
[2016-12-06 05:04] VITALS: BP 154/68; PULSE 72; RESP 18; O2SAT 97
[2016-12-06] MEDS: Insulin LISPRO 300 Unit/3 mL Inj SUBQ SCH ×2 (08:00→11:35)
[2016-12-06] MEDS: Multivit-Miner-Folic Acid-Iron Tablet PO SCH (08:20)
[2016-12-06] MEDS: levoFLOXacin 500 mg Tablet PO SCH (08:21)
[2016-12-06] MEDS: Potassium Chloride 20 mEq SR Tablet PO SCH (08:22)
[2016-12-06] MEDS: Lisinopril 40 Tablet PO SCH (08:22)
[2016-12-06 08:25] VITALS: BP 155/71; PULSE 71; RESP 14; O2SAT 92
[2016-12-06] MEDS: Insulin GLARgine 100 Unit/mL Syringe SUBQ SCH (08:26)
--- NOTE | 2016-12-06 08:46 | PCM.DIMED ---
Discharge Instructions Date of Service Dec 06, 2016 Dates of Hospitalization Dec 03, 2016 at 07:14 Discharge Diagnosis Discharge Diagnosis Pneumonia Diet Discharge Diet: Low fat, Low Sodium, Diabetic Activity Discharge Activity: No restrictions Call your provider Call your provider for: Fever or Chills, Shortness of breath Patient Instructions Patient Instructions It's very important that you get a repeat chest CT scan done in 3 months Follow-up plan oxygen 1-5 per nasal cannula as needed to keep O2 saturation 90% or higher physical therapy Follow-up with PCP in: 2 weeks Mari Barth MD Dec 06, 2016 08:46
[2016-12-06] MEDS ORDERED: Acetaminophen PO (08:54)
[2016-12-06] MEDS ORDERED: LEVO500T20 PO (08:54)
[2016-12-06] MEDS ORDERED: INSLIS SUBQ (08:54)
--- NOTE | 2016-12-06 09:07 | PCM.DC.MED ---
Discharge Summary Date of Service Dec 06, 2016 Dates of Hospitalization Date of Hospital Admission Dec 03, 2016 at 07:14 Date of Discharge: Dec 06, 2016 Providers: Admitting Physician: Nadia Caldwell DO Primary Care Physician: Jimmie Petersen MD Attending Physician: Kari Solano MD Diagnosis at Time of Discharge Diagnosis at Time of Discharge Pneumonia Procedures XRay, CTs & MRIs PROCEDURE: X-RAY CHEST ONE VIEW, PORTABLE ([id number]) INDICATIONS: sob, weak TECHNIQUE: One view of the chest was acquired. COMPARISON: [facility], CT, CT ANGIO CHEST PE, 12/03/2016, 5:33. [facility], CR, XR CHEST 1VW (PORTABLE), 07/07/2016, 16:39. FINDINGS: Surgical changes and devices: None. Lungs and pleura: No pleural effusions or pneumothorax. Lung volumes are low. Mild patchy bilateral basilar airspace opacities are present in the left greater than right. Mediastinum: Mediastinal contours appear normal. Heart size is normal. Bones and chest wall: No suspicious bony lesions. Overlying soft tissues appear unremarkable. IMPRESSION: Mild bibasilar atelectasis versus pneumonia. Dictated by: Modesto Patel M.D. on 12/03/2016 at 7:36 Approved by: Modesto Patel M.D. on 12/03/2016 at 7:38 PROCEDURE: CT ANGIO CHEST PULMONARY EMBOLISM ([id number]) INDICATIONS: SOB, hypoxia TECHNIQUE: After the administration of intravenous contrast, 2 mm thick sections acquired from the pulmonary apices to the posterior costophrenic angles. 3-dimensional maximum intensity projection (MIP) coronal and sagittal reformats were then acquired through the thorax. For radiation dose reduction, the following was used: automated exposure control, adjustment of mA and/or kV according to patient size. COMPARISON: None. FINDINGS: Image quality: Excellent. Pulmonary arteries: Pulmonary arteries are normal in size, and demonstrate no intraluminal filling defects to suggest central pulmonary embolism. Lungs and pleura: Moderate air space opacity within the left lower lobe posteriorly. Mild right lower lobe airspace opacity. No pleural effusions or pneumothorax. Central and peripheral airways are patent. Mediastinum: Heart size is enlarged, without pericardial effusion. There is calcification of the coronary vasculature. 15 mm short axis right paratracheal lymphadenopathy. 9 mm short axis right subcarinal lymph node enlargement. Thoracic aorta is normal in caliber and enhancement. Esophagus is normal in caliber, without hiatal hernia. Bones and chest wall: No suspicious bony lesions. Ribs and thoracic spine appear intact throughout. Thyroid gland demonstrates an exophytic 20 mm nodule protruding inferiorly from the left lobe, as before.. No axillary or supraclavicular adenopathy. Abdomen: Visualized upper abdominal solid organs appear normal in the early arterial phase of enhancement. IMPRESSION: 1. No pulmonary embolus. 2. Left greater than right basilar pneumonia. 3. Presumably reactive mediastinal lymph node enlargement. Followup chest CT with contrast in 3 months is recommended to ensure resolution and exclude underlying malignancy. 4. Concordant with preliminary interpretation. Dictated by: Modesto Patel M.D. on 12/03/2016 at 8:23 Approved by: Modesto Patel M.D. on 12/03/2016 at 8:26 Brief History He has been feeling weak. This morning around 3 AM he says he got up to go to the bathroom and went "down". According to the ED physician and he was down on his knees and not able to get back up. He [facility] at [facility] and pushed the button for assistance and they called the ambulance. He denies fever chills or sweats he's not had a cough for recent URI. Son said he saw him yesterday morning and he looked fine. Hospital Course # Left lower lobe pneumonia (more clearly seen on CT) with hypoxia - He will need follow-up imaging to document resolution (and reassess "Presumably reactive mediastinal lymph node enlargement"), discussed with patient - Received vancomycin and Zosyn in the emergency department. 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 there have been no pauses since admission - EKG - 1st degree AVB - not currently on any medication likely to cause # Diabetes mellitus, type II but on high dose insulin therapy - Continue his usual long-acting insulin as well as a high-dose lispro sliding scale (and will increase it further at discharge) - glucoses mostly low-mid 200s # Hematuria, (was not present on urinalysis in June 2016) - Follow up as an outpatient # Chronic anemia, hemoglobin essentially unchanged when compared to June so appears stable # Chronic kidney disease, stable, creatinine 1.85 today and was 1.81 in June # Chronic mild elevation of troponin probably related to kidney disease, was 0.59 in June and 0.47 today Exam Vital Signs (Last) Date Time Temp Pulse Resp B/P Pulse Ox O2 Delivery O2 Flow Rate FiO2 12/06/16 08:25 37.0 71 14 155/71 92 Nasal Cannula 1.00 Exam General: Alert and oriented, no acute distress Heart: Regular Lungs: Few bibasilar inspir crackles but improved, some decrease in BS in left base Abdomen: Soft, non-tender Extremities: Trace pedal edema and chronic stasis changes lower legs bilaterally Test 12/03/16 04:07 12/03/16 05:00 12/03/16 07:50 12/05/16 05:30 Hold Purple Top Tube Received (Received) D-Dimer 2.51mg/L FEU (<0.50) Hold Blue Top Tube Received (Received) Sodium Level 139mEq/L (134-144) Potassium Level 5.0mEq/L (3.5-5.2) Chloride Level 100mEq/L (97-108) Carbon Dioxide Level 25mmol/L (18-29) Blood Urea Nitrogen 40mg/dL (8-27) Creatinine 1.85mg/dL (0.76-1.27) Estimat Glomerular Filtration Rate 37mL/min (>59) Glucose Level 126mg/dL (60-99) Calcium Level 8.6mg/dL (8.5-10.1) Magnesium Level 2.1mg/dL (1.6-2.6) Total Bilirubin 0.4mg/dL (0.0-1.2) Aspartate Amino Transf (AST/SGOT) 22U/L (0-50) Alanine Aminotransferase (ALT/SGPT) 26U/L (0-44) Alkaline Phosphatase 151U/L (25-160) Troponin T 0.047ug/L (0.0-0.011) Pro-B-Type Natriuretic Peptide 373.3pg/mL (0-486) Total Protein 7.5g/dL (6.4-8.4) Albumin 3.5g/dL (3.4-5.0) Procalcitonin 0.13ng/mL (0.00-0.08) Hold [place] Top Tube Received (Received) Lactic Acid Level 0.9mmol/L (0.4-2.0) Urine Color Yellow (YELLOW) Urine Appearance Clear (CLEAR,HAZY) Urine pH 5.0 (5.0-8.0) Urine Specific [place] 1.020 (1.003-1.035) Urine Protein Negativemg/dL (NEG,TRACE) Urine Glucose (UA) Negativemg/dL (NEGATIVE) Urine Ketones Negativemg/dL (NEGATIVE) Urine Occult Blood Large (NEGATIVE) Urine Nitrite Negative (NEGATIVE) Urine Bilirubin Negative (NEGATIVE) Urine Urobilinogen Normalmg/dL (NORMAL) Urine Leukocyte Esterase Negative (NEGATIVE) Urine RBC >50/hpf (0-2) Urine WBC 0-5/hpf (0-5) Urine Epithelial Cells Few/hpf (NONE-MOD) Urine Crystals None seen (NONE SEEN) Urine Bacteria None/hpf (NONE-FEW) Urine Hyaline Casts None/lpf (NONE) Urine Granular Casts None seen (NONE SEEN) Urine Waxy Casts None seen (NONE SEEN) Urine Red Blood Cell Casts None seen (NONE SEEN) Urine White Blood Cell Casts None seen (NONE SEEN) Urine Mucus None seen (None Seen) Urine Trichomonas None seen (NONE SEEN) Urine Yeast None (NONE SEEN) Urinalysis Comment None Urine Culture Reflexed Not indicated White Blood Count 11.1th/mm3 (3.8-10.1) Red Blood Count 3.42mil/mm3 (4.40-5.80) Hemoglobin 10.0g/dL (13.8-17.2) Hematocrit 32.1% (41.0-50.0) Mean Corpuscular Volume 93.9fL (81-100) Mean Corpuscular Hemoglobin 29.2pg (27.0-35.0) Mean Corpuscular Hemoglobin Concent 31.2% (32.0-37.0) Red Cell Distribution Width 17.1% (12.3-15.4) Platelet Count 173bil/L (150-400) Neutrophils (%) (Auto) 75.8% (40-74) Lymphocytes (%) (Auto) 11.7% (14-46) Monocytes (%) (Auto) 8.1% (4-12) Eosinophils (%) (Auto) 3.7% (0-5) Basophils (%) (Auto) 0.1% (0-3) Hemoglobin A1c 7.9% (4.8-5.6) Discharge Medications Discharge Medications Allopurinol (Allopurinol) 300 Mg Tablet 300 MG PO DAILY (Reported) Alpha Lipoic Acid (Alpha Lipoic Acid) 600 Mg Capsule 600 MG PO DAILY (Reported) Amlodipine (Amlodipine) 10 Mg Tablet 10 MG PO DAILY (Reported) Aspirin/Caffeine (Anacin 500-32 mg Tablet) 1 Each Tablet 1 TABLET PO DAILY ( Reported) Atorvastatin Calcium (Atorvastatin Calcium) 10 Mg Tablet 10 MG PO MORNING ( Reported) Furosemide (Furosemide) 40 Mg Tablet 120 MG PO BID (Reported) Gabapentin (Gabapentin) 300 Mg Capsule 300 MG PO MORNING (Reported) Gabapentin (Gabapentin) 300 Mg Capsule 900 MG PO QPM (Reported) Insulin Glargine (Lantus U100 Insulin Vial) 100 Unit/Ml Vial 140 UNIT SUBQ MORNING (Reported) Insulin Human Lispro (HumaLOG U100 Insulin Vial) 100 Unit/Ml Unit 0 UNIT SUBQ WMHS Check blood sugars before meals and at bedtime. Use correction factor only before meals. Blood Sugar Lispro Correction: <151, 0 units; 151-175, 2 unit; 176-200, 4 units; 201-225, 7 units; 226-250, 10 units; 251-275, 12 units; 276- 300, 15 units; 301-325, 16 units; 326-350, 17 units; 351-375, 18 units; 376-400 , 19 units; >400, 20 units. For bedtime don't give if glu < 201. For 201 and above subtract 4 units from above doses. Prescribed by: KARI SOLANO MD Levofloxacin (Levaquin) 500 Mg Tablet 500 MG PO DAILYAC Prescribed by: KARI SOLANO MD Lisinopril (Lisinopril) 40 Mg Tablet 40 MG PO DAILY (Reported) Penicillin V Potassium (Penicillin V Potassium) 500 Mg Tablet 500 MG PO BID ( Reported) Potassium Chloride (Potassium Chloride) 20 Meq Tab.er.prt 20 MEQ PO BID ( Reported) TAKE WITH FOOD Tamsulosin ER (Tamsulosin ER) 0.4 Mg Cap.er.24h 0.4 MG PO DAILY (Reported) Vit B Comp/C/FA/Iron/Vit E (Vitamin B Complex Tablet) 1 Each Tablet 1 TABLET PO DAILY (Reported) As needed ([Acetaminophen]) 325 MG TABLET 650 MG PO Q4H PRN PRN For Pain Prescribed by: KARI SOLANO MD Ranitidine (Ranitidine) 150 Mg Capsule 150 MG PO BID PRN PRN For Indigestion ( Reported) Followup Plan Follow-up plan oxygen 1-5 per nasal cannula as needed to keep O2 saturation 90% or higher physical therapy Discharge Diet: Low fat, Low Sodium, Diabetic Discharge Activity: No restrictions Patient Instructions It's very important that you get a repeat chest CT scan done in 3 months Follow-up with PCP in: 2 weeks Kari Solano MD Dec 06, 2016 09:07
[2016-12-06 10:01] VITALS: PULSE 75
--- NOTE | 2016-12-06 11:30 | NUR ---
Social Work-discharge: Data:EMR reviewed. Pt is on day 3 of hospitalization for pneumonia per H&P. Pt is medically stable for discharge. PT continues to recommend SNF. ANA LILIA confirmed with Jody that [facility] is able to accept pt today. ANA LILIA faxed orders and created packet. Jody has arranged transport via w/c van for 1430. ANA LILIA updated pt and darryn Slaughter via phone, both agreeable. Darryn Slaughter states he will update his brother Cesar regarding discharge. RN,UC,[facility] and [facility] to plan. Assessment:Pt who would benefit from SNF. Plan:Pt to discharge to [facility] today via cabulance at 1430. RN,UC,pt[facility], [facility] updated and agreeable to plan. BARNEY Bruce
[2016-12-06 13:11] VITALS: BP 157/64; PULSE 68; RESP 18; O2SAT 93
--- NOTE | 2016-12-06 14:34 | NUR ---
Discharge Pt d/c on wc by transporter to [facility] at 1430. VSS. IV d/cd. Pt transported off on 1L of O2 via NC. All personal belongings left with pt. Pt denied having questions. Pts son stopped by for a visit earlier in the day, was aware of pt transferring to a SNIF. Addendum: 12/06/16 at 1438 by AMY ANGULO RN Report called to receiving nurseMackenzie at 1410
== END 2016-12-06 14:33 | DRG 189 ==
LOC: EDUNIT# 03:56 → SED 03:56 → EDBD 03:56 → MPC 07:14
PROVIDERS: ADMIT Internal Medicine; ATTEND Internal Medicine
DX: J96.01 Acute respiratory failure with hypoxia (principal); J18.9 Pneumonia, unspecified organism; E66.2 Morbid (severe) obesity with alveolar hypoventilation; I50.32 Chronic diastolic (congestive) heart failure; I13.0 Hypertensive heart and chronic kidney disease with heart failure and stage 1 through stage 4 chronic kidney disease, or unspecified chronic kidney disease; E11.42 Type 2 diabetes mellitus with diabetic polyneuropathy; E11.22 Type 2 diabetes mellitus with diabetic chronic kidney disease; N18.3 Chronic kidney disease, stage 3 (moderate); Z68.39 Body mass index [BMI] 39.0-39.9, adult; N40.0 Benign prostatic hyperplasia without lower urinary tract symptoms; I44.0 Atrioventricular block, first degree; M10.9 Gout, unspecified; D64.9 Anemia, unspecified; Z79.2 Long term (current) use of antibiotics; Z79.4 Long term (current) use of insulin; Z22.322 Carrier or suspected carrier of Methicillin resistant Staphylococcus aureus